=== PATIENT | male | born 2000 | race Caucasian/White ===

== ENCOUNTER 2020-05-07 18:31 | Emergency (ER) | payer BC, SELFPAY ==
[2020-05-07 18:45] VITALS: BP 113/77; PULSE 83; RESP 21; TEMP 36.8; O2SAT 100
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
--- NOTE | 2020-05-07 18:53 | PC.NURSE ---
OD 20/40, OS 20/20 w/ no corrective lenses.
[2020-05-07 19:05] VITALS: BP 113/77; PULSE 88; RESP 17; O2SAT 100
== END 2020-05-07 19:07 | disposition home or self-care (01) ==
LOC: ANHED 19:01
PROVIDERS: Emergency Provider General Practice
DX: S05.01XA Injury of conjunctiva and corneal abrasion without foreign body, right eye, initial encounter (principal); W20.8XXA Other cause of strike by thrown, projected or falling object, initial encounter
CPT/HCPCS: 99283; A9270